=== PATIENT | female | born 1960 | race Caucasian/White ===

== ENCOUNTER 2019-02-01 09:20 | Emergency (ER) | payer OTHER ==
[2019-02-01] MEDS ORDERED: Ondansetron INJ* 2 MG/ML VIAL IV ONE (11:14)
[2019-02-01] MEDS ORDERED: Ketorolac INJ* 30 MG/ML 1 ML VIAL IV PUSH ONE (11:14)
[2019-02-01] MEDS ORDERED: NS 0.9% 1000 ML** 1,000 ML IV ONE (11:15)
--- NOTE | 2019-02-01 11:16 | ED ---
Abdominal Pain/Female - HPI Summary HPI Summary: The patient is a 58-year-old female arriving by ambulance to [facility] emergency department accompanied by with a chief complaint of sudden onset right upper quadrant pain at 0300 this morning. She reports that she had been asleep when the pain began at 0300. She thought that it was a muscular pain, so she went back to sleep and then went to work this morning. At work, the sharp pain worsened as it radiates into the right flank, so she came here by ambulance. In the emergency department, her pain is rated 9/10 in severity. She endorses nausea and chills. She denies any vomiting, diarrhea, dysuria, chest pain, shortness of breath, or palpitations. There are no aggravating or alleviating factors. She has not taken any medications prior to arrival for treatment. No history of kidney stones. PMHx: asthma, cholecystectomy. FHx: cardiac disease, aneurysms. Nonsmoker, occasional EtOH, no substance use. Medications reviewed. Allergies noted. - History of Current Complaint Chief Complaint: EDAbdPain Stated Complaint: ABD PAIN PER EMS Time Seen by Provider: 02/01/19 11:08 Hx Obtained From: Patient Onset/Duration: Sudden Onset, Lasting Hours - since 0300 this morning, Still Present Timing: Hours Severity Initially: Moderate Severity Currently: Severe Pain Intensity: 9 Pain Scale Used: 0-10 Numeric Location: Discrete At: RUQ Radiates: Yes Radiates to: Flank - right Character: Sharp Aggravating Factor(s): Nothing Alleviating Factor(s): Nothing Associated Signs and Symptoms: Positive: Nausea, Other: - chills; Negative: chest pain, shortness of breath, palpitations. Negative: Fever, Urinary Symptoms, Vomiting, Diarrhea Allergies/Adverse Reactions: Allergies Allergy/AdvReac Type Severity Reaction Status Date / Time latex Allergy Anaphylatic Verified 02/01/19 09:27 Shock levofloxacin [From Levaquin] Allergy Rash And Verified 02/01/19 11:48 Itching Penicillins Allergy Rash Verified 02/01/19 09:27 [place] Allergy Anaphylatic Uncoded 02/01/19 09:27 Shock Home Medications: Home Medications Budesonide NEB* [Pulmicort NEB*] 0.25 mg INH BID 02/01/19 [History Confirmed 11/12] Cetirizine* [ZyrTEC 10 MG TAB*] 10 mg PO DAILY 02/01/19 [History Confirmed 02/01] Montelukast Sodium TAB* [Singulair TAB*] 10 mg PO DAILY 02/01/19 [History Confirmed 02/01/19] Multivitamins/Minerals TAB* [Theragran/minerals TAB*] 1 tab PO DAILY 02/01/19 [ History Confirmed 02/01/19] PMH/Surg Hx/FS Hx/Imm Hx Endocrine/Hematology History: Denies: Hx Diabetes, Hx Thyroid Disease Cardiovascular History: Denies: Hx Hypercholesterolemia, Hx Hypertension Respiratory History: Reports: Hx Asthma, Hx Seasonal Allergies Denies: Hx Chronic Obstructive Pulmonary Disease (COPD) GI History: Denies: Hx Ulcer - Surgical History Surgical History: Yes Surgery Procedure, Year, and Place: cholecystectomy Infectious Disease History: No Infectious Disease History: Denies: Hx Clostridium Difficile, Hx Hepatitis, Hx Human Immunodeficiency Virus (HIV), Hx of Known/Suspected MRSA, Hx Shingles, Hx Tuberculosis, Hx Known/ Suspected VRE, Traveled Outside the [place] in Last 30 Days - Family History Known Family History: Positive: Cardiac Disease - father quadruple bypass, Other - aneurysms - Social History Alcohol Use: Occasionally Substance Use Type: Reports: None Hx Tobacco Use: No Smoking Status (MU): Never Smoked Tobacco Review of Systems Positive: Chills. Negative: Fever Negative: Palpitations, Chest Pain Negative: Shortness Of Breath Positive: Nausea. Negative: Vomiting, Diarrhea Negative: dysuria All Other Systems Reviewed And Are Negative: Yes Physical Exam - Summary Physical Exam Summary: VITAL SIGNS: Reviewed. GENERAL: Patient is a well-developed and nourished female who is lying comfortable in the stretcher. Patient is not in any acute respiratory distress. HEAD AND FACE: No signs of trauma. No ecchymosis, hematomas or skull depressions. No sinus tenderness. EYES: PERRLA, EOMI x 2, No injected conjunctiva, no nystagmus. EARS: Hearing grossly intact. Ear canals and tympanic membranes are within normal limits. MOUTH: Oropharynx within normal limits. NECK: Supple, trachea is midline, no adenopathy, no JVD, no carotid bruit, no c- spine tenderness, neck with full ROM. CHEST: Symmetric, no tenderness at palpation. LUNGS: Clear to auscultation bilaterally. No wheezing or crackles. CVS: Regular rate and rhythm, S1 and S2 present, no murmurs or gallops appreciated. ABDOMEN: Soft, non-tender. No signs of distention. No rebound, no guarding, and no masses palpated. Bowel sounds are normal. BACK: Right costovertebral angle tenderness EXTREMITIES: FROM in all major joints, no edema, no cyanosis or clubbing. NEURO: Alert and oriented x 3. No acute neurological deficits. Speech is normal and follows commands. SKIN: Dry and warm. Triage Information Reviewed: Yes Vital Signs On Initial Exam: Initial Vitals Temp Pulse Resp BP Pulse Ox 98.7 F 109 20 150/81 96 02/01/19 09:25 12 09:25 12 09:25 02/01/19 09:25 02/01/19 09:25 Vital Signs Reviewed: Yes Procedures - Sedation Patient Received Moderate/Deep Sedation with Procedure: No Diagnostics - Vital Signs Vital Signs Temp Pulse Resp BP Pulse Ox 02/01/19 09:25 98.7 F 109 20 150/81 96 - Laboratory Result Diagrams: 02/01/19 11:22 02/01/19 11:22 Lab Statement: Any lab studies that have been ordered have been reviewed, and results considered in the medical decision making process. - CT Abdomen/Pelvis CT CT Interpretation Completed By: Radiologist Summary of CT Findings: Impression: 1. Post cholecystectomy. Negative for biliary dilatation. 2. Normal appendix visualized. Mild colonic diverticulosis. No acute pathologic process of the alimentary tract evident. ED physician has reviewed this report. Abdominal Pain Fem Course/Dx - Course Course Of Treatment: The patient is a 58-year-old female arriving by ambulance to [facility] emergency department accompanied by with a chief complaint of sudden onset right upper quadrant pain at 0300 this morning. She reports that she had been asleep when the pain began at 0300. She thought that it was a muscular pain, so she went back to sleep and then went to work this morning. At work, the sharp pain worsened as it radiates into the right flank, so she came here by ambulance. In the emergency department, her pain is rated 9/10 in severity. She endorses nausea and chills. She denies any vomiting, diarrhea, dysuria, chest pain, shortness of breath, or palpitations. There are no aggravating or alleviating factors. She has not taken any medications prior to arrival for treatment. No history of kidney stones. PMHx: asthma, cholecystectomy. FHx: cardiac disease, aneurysms. Nonsmoker, occasional EtOH, no substance use. Medications reviewed. Allergies noted. In the ED course the patient was placed in a cardiac exercise specialist, IV access was obtained, and IV fluids were started. Blood work without any significant abnormality except for WBCs of 12, glucose of 106, calcium of 10.4, and CRP of 8.84. Urinalysis is negative for UTI. Abdominopelvic CT Impression: 1. Post cholecystectomy. Negative for biliary dilatation. 2. Normal appendix visualized. Mild colonic diverticulosis. No acute pathologic process of the alimentary tract evident. In the ED course, the patient was given Toradol, and the symptoms resolved. The patient remains asymptomatic. The patient has no pain. I discussed all the findings and test results with the patient. Patient was instructed to return to the emergency room immediately if any of the symptoms return or worsen. Plan of care was discussed with the patient and understands and agrees. All questions were answered at patient satisfaction. There were no further complaints or concerns. Lung exam before discharge: CTA B/L. Good air exchange. No wheezing or crackles heard. CVS: S1 and S2 present. No murmurs appreciated. Patient is alert and oriented x 3. Patient is hemodynamically stable. Patient will be discharged home with follow up PCP in the next 2-3 days. - Diagnoses Differential Diagnosis: Positive: Appendicitis, Bowel Obstruction, Constipation , Diverticulitis, Urinary Tract Infection Provider Diagnoses: Flank pain Discharge ED - Sign-Out/Discharge Documenting (check all that apply): Patient Departure - Patient will be discharged home. - Discharge Plan Condition: Stable Disposition: HOME Patient Education Materials: Flank Pain (ED) Referrals: Paige Fallon DO [Primary Care Provider] - 3 Days Additional Instructions: Follow up with your primary care provider in 2-3 days. Return to the emergency department for any new or worsening symptoms. - Billing Disposition and Condition Condition: STABLE Disposition: Home - Attestation Statements Document Initiated by Scribe: Yes Documenting Scribe: Ira Shetty Provider For Whom Rosarioibe is Documenting (Include Credential): Dr. Ander Larry MD Scribe Attestation: Ira Swanson scribed for Dr. Ander Larry MD on 02/01/19 at 1847. Scribe Documentation Reviewed: Yes Provider Attestation: The documentation as recorded by the scribe, Ira Shetty accurately reflects the service I personally performed and the decisions made by me, Dr. Ander Larry MD Status of Scribe Document: Viewed
[2019-02-01 11:48] LABS: Urine Appearance Cloudy; Urine Bilirubin Negative (Negative); Urine Blood 3+ (Negative); Urine Color Yellow; Urine Glucose Negative (Negative); Urine Ketones Negative (Negative); Urine Nitrite Negative (Negative); Urine Protein Negative (Negative); Urine Specific Gravity 1.015 (1.010-1.030); Urine Urobilinogen Negative (Negative)
[2019-02-01 11:48] LABS: ABS Basophils 0.1 10^3/ul (0-0.2); ABS Lymphocytes 1.9 10^3/ul (1.0-4.8); ABS Monocytes 0.6 10^3/ul (0-0.8); ABS Neutrophils 9.4 10^3/ul (1.5-7.7); Eosinophil % 0.3 %; Hematocrit 44 % (35-47); Lymphocyte % 15.9 %; Mean Corpuscular HGB Conc 34 g/dL (31-36); Mean Corpuscular Hemoglobin 32 pg (27-31); Mean Corpuscular Volume 93 fL (80-97); Mean Platelet Volume 7.6 fL (7.4-10.4); Platelet Count 319 10^3/uL (150-450); Red Blood Count 4.75 10^6 /uL (3.70-4.87); Red Cell Distribution Width 13 % (10-15)
[2019-02-01 11:51] LABS: Urine Bacteria Absent (Absent); Urine Red Blood Cell 3+(>10/hpf) (Absent); Urine Squamous Epithelial Cell Present (Absent); Urine White Blood Cell Trace(0-5/hpf) (Absent)
[2019-02-01 11:58] LABS: Albumin 4.4 g/dL (3.2-5.2); Albumin/Globulin Ratio 1.4 (1-3); BUN/Creatinine Ratio 18.4 (8-20); C Reactive Protein 8.84 mg/L (<8.01); Calcium 10.4 mg/dL (8.6-10.3); EGFR African American 95.3 (>60); EGFR Non-African American 78.7 (>60); Globulin 3.2 g/dL (2-4); Total Bilirubin 0.5 mg/dL (0.2-1.0); Total Protein 7.6 g/dL (6.4-8.9)
[2019-02-01] MEDS ORDERED: Orphenadrine Citrate IV* 30 MG/ML 2 ML VIAL IV ONE (12:20)
[2019-02-01 13:14] VITALS: BP 131/79
== END 2019-02-01 14:22 | disposition home or self-care (01) ==
LOC: ED 09:20
DX: R10.31 Right lower quadrant pain (principal); J45.909 Unspecified asthma, uncomplicated; Z90.49 Acquired absence of other specified parts of digestive tract; Z79.899 Other long term (current) drug therapy; Z88.0 Allergy status to penicillin; Z88.1 Allergy status to other antibiotic agents; Z91.040 Latex allergy status
CPT/HCPCS: 36415; 74176; 80053; 81003; 81015; 83605; 83690; 85025; 86140; 87086; 96361; 96374; 96375; 99283; J1885; J2360; J2405